=== PATIENT | male | born 1955 | race Caucasian/White ===

== ENCOUNTER 2021-05-08 06:14 | Day surgery (SDC) | payer BC ==
[2021-05-08] MEDS ORDERED: Lactated Ringers 1,000 ML IV SCH (06:45)
--- NOTE | 2021-05-08 06:58 | PCM.PREANE ---
Preanesthetic Assessment - Procedure Proposed Procedure: Left Port-a-cath placement - Anesthesia/Transfusion/Family Hx Anesthesia History: Prior Anesthesia Without Reaction Transfusion History: No Prior Transfusion(s) - Review of Systems General: No Symptoms Pulmonary: No Symptoms (COPD) Cardiovascular: No Symptoms (HTN, HLD) Gastrointestinal: No Symptoms (Pancreatic CA, GERD well controlled) Neurological: No Symptoms Other: Reports: None - Physical Assessment NPO Status Date: 05/08/21 NPO Status Time: 12:00 Height: 5 ft 10 in Weight: 108.862 kg ASA Class: 2 Mental Status: Alert & Oriented x3 Airway Class: Mallampati = 2 Dentition: Reports: Normal Dentition Thyro-Mental Finger Breadths: 3 Mouth Opening Finger Breadths: 3 ROM/Head Extension: Full Lungs: Clear to Auscultation, Normal Respiratory Effort Cardiovascular: Regular Rate, Regular Rhythm - Allergies Allergies/Adverse Reactions: Allergies Allergy/AdvReac Type Severity Reaction Status Date / Time No Known Allergies Allergy Verified 05/06/21 08:04 - Acknowledgements Anesthesia Type Planned: MAC Pt an Appropriate Candidate for the Planned Anesthesia: Yes Alternatives and Risks of Anesthesia Discussed w Pt/Guardian: Yes Pt/Guardian Understands and Agrees with Anesthesia Plan: Yes PreAnesthesia Questionnaire HEENT History: Reports: Other (See Below) Other HEENT History: reading glasses Cardiovascular History: Reports: Heart Murmur, High Cholesterol, Hypertension Respiratory History: Reports: COPD Gastrointestinal History: Reports: Other (See Below) Other Gastrointestinal History: occasional heartburn Genitourinary History: Reports: None Musculoskeletal History: Reports: Gout Neurological History: Reports: None Psychiatric History: Reports: None Endocrine/Metabolic History: Reports: Obesity/BMI 30+ Hematologic History: Reports: None Immunologic History: Reports: None Oncologic (Cancer) History: Reports: Pancreatic Dermatologic History: Reports: None - Past Surgical History Head Surgeries/Procedures: Reports: None HEENT Surgical History: Reports: None Cardiovascular Surgical History: Reports: None Respiratory Surgical History: Reports: None GI Surgical History: Reports: Appendectomy, EGD Male Surgical History: Reports: None Endocrine Surgical History: Reports: None Neurological Surgical History: Reports: None Musculoskeletal Surgical History: Reports: None Oncologic Surgical History: Reports: None Dermatological Surgical History: Reports: None - SUBSTANCE USE Tobacco Use Status *Q: Current Some Day Tobacco User Tobacco Use Within Last Twelve Months: Cigars Recreational Drug Use History: No - HOME MEDS Home Medications: Home Meds Allopurinol [Zyloprim] 300 mg PO DAILY 05/06/21 [History] Anoro Ellipta 1 puff INH DAILY 05/06/21 [History] Ascorbic Acid [Vitamin C] 100 mg PO DAILY 05/06/21 [History] Aspirin [Adult Aspirin Regimen] 81 mg PO DAILY 05/06/21 [History] Cholecalciferol (Vitamin D3) [Vitamin D3] 1,000 units PO DAILY 05/06/21 [History] Finasteride 5 mg PO BEDTIME 05/06/21 [History] Multivitamin 1 tab PO DAILY 05/06/21 [History] [place]-3S/DHA/Epa/Fish Oil [Fish Oil [place]-3 Softgel] 2 tab PO BID 05/06/21 [History] Omeprazole 20 mg PO DAILY PRN 05/06/21 [History] Simvastatin 20 mg PO DAILY 05/06/21 [History] Tamsulosin HCl 0.4 mg PO BEDTIME 05/06/21 [History] Zolpidem Tartrate 5 mg PO BEDTIME PRN 05/06/21 [History] amLODIPine [Norvasc] 5 mg PO DAILY 05/06/21 [History] hydrOXYzine HCL [Hydroxyzine HCl] 25 mg PO TID PRN 05/06/21 [History] - CURRENT (IN HOUSE) MEDS Current Meds: Current Medications Lactated Ringer's (Ringers, Lactated) 1,000 mls @ 100 mls/hr IV ASDIRECTED MARLEEN
[2021-05-08] MEDS ORDERED: Bupivacaine 0.5% 10 ML SDV ONE (07:34)
[2021-05-08] MEDS ORDERED: Heparin Sodium 100 Units/ML 3 ML Syringe ONE ×2 (07:35→07:37)
[2021-05-08] MEDS ORDERED: Iopamidol 408 MG/ML 20 ML SDV ONE (07:35)
[2021-05-08] MEDS ORDERED: Octyl 2-Cyanoacrylate 1 Tube ONE (07:37)
[2021-05-08] MEDS ORDERED: Propofol 200 MG/20 ML SDV ONE (07:38)
[2021-05-08] MEDS ORDERED: Midazolam 1 MG/ML 2 ML SDV ONE (07:38)
[2021-05-08] MEDS ORDERED: Lidocaine 2% 5 ML SDV ONE (07:38)
[2021-05-08] MEDS ORDERED: fentaNYL 100 MCG/2 ML SDV ONE (07:38)
--- NOTE | 2021-05-08 09:21 | PCM.POSTAN ---
POST ANESTHESIA ASSESSMENT - MENTAL STATUS Mental Status: Alert, Oriented - VITAL SIGNS Vital Signs: Last Vital Signs Temp 97.3 F 05/08/21 07:08 Pulse 88 05/08/21 07:08 Resp 16 05/08/21 07:08 BP 128/68 05/08/21 07:08 Pulse Ox 95 05/08/21 07:08 - RESPIRATORY Respiratory Status: Respiratory Rate WNL, Airway Patent, O2 Saturation Stable - CARDIOVASCULAR CV Status: Pulse Rate WNL, Blood Pressure Stable - GASTROINTESTINAL GI Status: No Symptoms - PAIN Pain Score: 0 - POST OP HYDRATION Hydration Status: Adequate & Stable
--- NOTE | 2021-05-08 09:24 | PCM48HPAN ---
Post Anesthesia Note - EVALUATION WITHIN 48HRS OF ANESTHETIC Vital Signs in Normal Range: Yes Patient Participated in Evaluation: Yes Respiratory Function Stable: Yes Airway Patent: Yes Cardiovascular Function Stable: Yes Hydration Status Stable: Yes Pain Control Satisfactory: Yes Nausea and Vomiting Control Satisfactory: Yes Mental Status Recovered: Yes Vital Signs: Last Vital Signs Temp 97.3 F 05/08/21 07:08 Pulse 88 05/08/21 07:08 Resp 16 05/08/21 07:08 BP 128/68 05/08/21 07:08 Pulse Ox 95 05/08/21 07:08 - COMMENTS/OBSERVATIONS Free Text/Narrative:: Pt doing well post-op. VSS. No apparent anesthetic complications. Dr. Naren Jesus
--- NOTE | 2021-05-08 09:31 | PCM.OPNOTE ---
- General Post-Op/Procedure Note Date of Surgery/Procedure: 05/08/21 Operative Procedure(s): Left internal jugular port a cath placement Findings: Left IJ port. Catheter tubing 31 cm long. Pre Op Diagnosis: Pancreatic cancer Post-Op Diagnosis: same Anesthesia Technique: General LMA Primary Surgeon: Alexa Monteiro Fluid Replacement, Intraop: 1,000 EBL in mLs: 5 Condition: Good
[2021-05-08] MEDS ORDERED: Acetaminophen 1,000 MG in Premix Bag 1 BAG IV ONE (09:33)
--- NOTE | 2021-05-08 10:00 | CR ---
INDICATION: Left-sided port placement TECHNIQUE: Chest 1 view. COMPARISON: None FINDINGS: Cardiovascular and mediastinum: Heart size and vasculature are normal in caliber and appearance. Mediastinum is within normal limits. Left-sided port a catheter tip just above the cavoatrial junction. Lungs and pleural space: Lungs are clear. No sign of infiltrate or mass. No sign of pleural effusion. No pneumothorax. Bones and soft tissues: No significant findings. IMPRESSION: Left-sided port a catheter tip just above the caval atrial junction. No pneumothorax. Dictated by Chance Ruiz MD @ 05/08/2021 9:59:13 AM (Electronically Signed)
--- NOTE | 2021-05-08 12:24 | CR ---
INDICATION: Port placement TECHNIQUE: Intraoperative C-arm fluoroscopy. IMPRESSION: Intraoperative C-arm fluoroscopy was provided. Fluoroscopy time 44.7 seconds. 1 images were captured. Dictated by Gumaro Doshi MD @ 05/08/2021 12:23:53 PM (Electronically Signed)
--- NOTE | 2021-05-08 17:34 | OR ---
SURGEON: ALEXA MONTEIRO MD DATE OF PROCEDURE: 05/08/2021 PREOPERATIVE DIAGNOSIS: Pancreatic cancer. POSTOPERATIVE DIAGNOSIS: Pancreatic cancer. PROCEDURE PERFORMED: Left internal jugular Port-A-Cath placement. PRIMARY SURGEON: Alexa Monteiro MD ANESTHESIA: General LMA. FLUIDS: 1000 mL crystalloid. ESTIMATED BLOOD LOSS: 5 mL. FINDINGS: Left internal jugular Port-A-Cath placement with catheter tubing trimmed to 31 cm. COMPLICATIONS: None. INDICATIONS: The patient is a 65-year-old male who presents with a new diagnosis of pancreatic cancer. He is in need of a port for chemotherapy treatment. I explained the procedure, expected perioperative course, and risks. He verbalized understanding and wishes to proceed. PROCEDURE IN DETAIL: The patient was brought into the OR and placed on the OR table in supine position. A time-out was completed verifying the patient's name, age, date of , allergies, and procedure to be performed. General LMA anesthesia was induced. Using an ultrasound, I verified the vascular anatomy of the left side of the neck. I identified the left carotid artery as well as the left internal jugular vein. Both arms were tucked to the patient's side and a shoulder bump placed under the patient's shoulder. The patient was placed into Trendelenburg position. The neck and chest wall were then prepped and draped in usual standard fashion. Using a sterile ultrasound probe, I re-identified the vascular anatomy of the left side of the neck. I anesthetized the skin overlying this area with 1% lidocaine plain and anesthetized the chest wall insertion site and tunneling tract with 0.5% Marcaine plain. Using ultrasound guidance, a guide needle was placed into the left internal jugular vein. A good return of venous blood was noted. A guidewire was placed down the vein into the superior vena cava. Placement of the guidewire was verified with C-arm. The guide needle was removed and the guidewire was secured to the drapes. I then turned my attention to the left anterior chest wall. Two fingerbreadths below the lateral clavicle, I used a 15 blade to make a 3-cm incision. Cautery was used to dissect down to the level of subcutaneous fat. I then created a subcutaneous chest wall pocket for the Port-A-Cath device to sit in. I then tunneled the catheter tubing from my site on the anterior chest wall up to the insertion site of the guidewire on the left side of the neck. Using fluoroscopy, I then dilated my vascular tract. The vascular dilator and guidewire were then removed and the vascular sheath left in place. I then placed my catheter tubing into the vascular sheath down into the superior vena cava. The vascular sheath was peeled away. Using fluoroscopic guidance, I pulled the catheter tubing into the distal 1/3 of the SVC. I aspirated my catheter tubing and had good return of venous blood. The catheter tubing was trimmed to 31 cm and placed on the Port-A-Cath device. The port was then placed in the anterior chest wall and secured on either side using interrupted 2-0 Prolene sutures. I accessed my Port-A-Cath device and had good return of venous blood. It was locked with 4 mL of heparinized saline. The anterior chest wall site was closed with interrupted 3-0 Vicryl sutures. The skin was closed with a running 4-0 Monocryl stitch. The insertion site on the neck was closed with interrupted 4-0 Monocryl suture. Dermabond and sterile dressings were applied. The patient was placed back into a supine flat position. He was extubated and taken to PACU. All counts were complete and correct at the end of the case. A chest x-ray was performed in the postoperative area. This showed good placement of the Port-A-Cath with no immediate complications. He tolerated the procedure well. REGIS KELLER /[id number]
== END 2021-05-08 10:15 | disposition home or self-care (01) ==
LOC: MW.SDS 06:14
PROVIDERS: ATTEND Surgery
DX: C25.9 Malignant neoplasm of pancreas, unspecified (principal); J44.9 Chronic obstructive pulmonary disease, unspecified; I10 Essential (primary) hypertension; E78.5 Hyperlipidemia, unspecified; M10.9 Gout, unspecified; F17.210 Nicotine dependence, cigarettes, uncomplicated; E66.9 Obesity, unspecified; Z79.899 Other long term (current) drug therapy; Z79.82 Long term (current) use of aspirin; Z90.49 Acquired absence of other specified parts of digestive tract; Z98.890 Other specified postprocedural states; Z68.34 Body mass index [BMI] 34.0-34.9, adult; Z01.812 Encounter for preprocedural laboratory examination; Z20.822 Contact with and (suspected) exposure to COVID-19
CPT/HCPCS: 36561; 71045; 76000; 87635; A9270; C1788; J0131; J0690; J1642; J2250; J2704; J3010; J3490; J7120; 00532; Q9966; U0002